=== PATIENT | female | born 1950 | race Caucasian/White ===

== ENCOUNTER 2022-01-04 09:49 | Emergency (ER) | payer MEDICARE, OTHER, SELFPAY ==
[2022-01-04 10:03] VITALS: BP 144/88; PULSE 99; RESP 20; TEMP 37.7; O2SAT 98; BMI 37.8
[2022-01-04 10:35] VITALS: BP 144/88; PULSE 99; RESP 20; TEMP 37.7; O2SAT 98; BMI 37.5
--- NOTE | 2022-01-04 11:05 | HMH.EDUTC ---
[facility] [place] Clinical Impression: Otitis media Qualifiers: Otitis media type: unspecified Laterality: bilateral Qualified Code(s): H66.93 - Otitis media, unspecified, bilateral Disposition: Home, Self-Care Condition on Discharge: Good Instructions: Middle Ear Infection, DI for Sinusitis, Amoxicillin and Clavulanic Acid Additional Instructions: *Monitor Temp, Over the counter Motrin or Tylenol as directed/as needed Tylenol every 4 hours and Motrin every 6 hours (as long as your family doctor has told you that you can take it) for fever or pain. and straight to ER if unable to lower temp less than 101.0 after medication given *Warm salt water gargles may help to soothe the throat *Throat Lozenges *Warm fluids like tea with honey may help to soothe the throat *Sleep elevated *Humidifier/Vaporizer Take medication as prescribed Return if needed Follow up IMMEDIATELY for new or worsening symptoms or no Noticeable improvement over the next 48-72 hours. 911 for difficulty breathing or swallowing Prescriptions: Amoxicillin/Potassium Clav [Amox-Clav 875-125 mg Tablet] 1 tab PO BID #20 tab Transmission Status: Pending to [facility] #[id number] predniSONE [Prednisone 20mg Tab] 20 mg PO BID #10 tab Transmission Status: Pending to [facility] # Referrals: Sidney Amezquita [Primary Care Provider] - As needed Time of Disposition: 11:16 Medical Decision Making - Shalom Inquiry Pt receiving controlled substance: No Shalom was queried for this patient: No Vital Signs: 01/04/22 10:03 01/04/22 10:35 Temperature 99.9 F H 99.9 F H Temperature Source Oral Oral Pulse Rate [Radial] 99 H 99 H Respiratory Rate 20 20 Blood Pressure [Right Arm] 144/88 H 144/88 H Blood Pressure Mean [Right Arm] 106 106 Blood Pressure Source [Right Arm] Manual Cuff/ Palpation Automatic Cuff Blood Pressure Position [Right Arm] Sitting Sitting 02 Sat by Pulse Oximetry 98 98 Oxygen Delivery Method Room Air Room Air - Lab Data Lab results reviewed: Yes: I reviewed the patient's lab results. Medical Decision Narrative: Patient states that she has taken Augmentin and Prednisone in the past without complication or reactions [facility] [place] - General Stated complaint: bilateral ear ache, off balance Time Seen by Provider: 01/04/22 11:05 Mode of Arrival: Ambulatory Source of Information: Patient Limitations: No Limitations Description of Symptoms (Recalled from Triage Doc. by RN): PATIENT C/O BILATERAL EAR PAIN SINCE YESTERDAY HEENT Symptoms (Recalled from RN notes): Yes Resp Symptoms (Recalled from RN notes): No Skin Symptoms (Recalled from RN notes): No MS Symptoms (Recalled from RN notes): No Functional Status (Recalled from RN notes): WNL - History of Present Illness Provider Complaint: Patient states that she has been having pain in both ears, sinus pain and pressure, and sore scratchy throat States that when she has an ear infection it makes her off balance and she noticed she was bumping into things today so she came in - Related Data Home Medications Medication Instructions Recorded Confirmed Venlafaxine HCl [Venlafaxine HCl 150 mg PO DAILY 01/04/22 01/04/22 ER] Previous Rx's Medication Instructions Recorded Amoxicillin/Potassium Clav 1 tab PO BID #20 tab 01/04/22 [Amox-Clav 875-125 mg Tablet] predniSONE [Prednisone 20mg 20 mg PO BID #10 tab 01/04/22 Tab] Allergies Allergy/AdvReac Type Severity Reaction Status Date / Time aspirin Allergy Verified 01/31/18 13:24 - Worker's Comp Is this a Worker's Comp case?: No [facility] History - Hepatitis A Screen Attestation statement:: This patient has been screened for Hepatitis A risk factors. I have reviewed the patient's past medical history: Yes Medical History: Denies:: Cancer, Diabetes Mellitus Type 1, Diabetes Mellitus Type 2, MRSA Laterality Cases: Right: Arthroscopy Shoulder, Carpal Tunnel Release, Bilateral: Tonsi
[2022-01-04 11:18] VITALS: BP 144/88; PULSE 99; RESP 20; TEMP 37.7; O2SAT 98
== END 2022-01-04 11:23 | disposition home or self-care (01) ==
PROVIDERS: Emergency Provider Nurse Practitioner; PCP Family Medicine
DX: H66.93 Otitis media, unspecified, bilateral (principal); J02.9 Acute pharyngitis, unspecified; Z79.52 Long term (current) use of systemic steroids; Z88.6 Allergy status to analgesic agent
CPT/HCPCS: 99213; G0463

== ENCOUNTER 2022-01-06 17:28 | Emergency (ER) | payer MEDICARE, OTHER, SELFPAY ==
[2022-01-06 18:04] VITALS: BP 152/86; PULSE 88; RESP 17; TEMP 36.8; O2SAT 96; BMI 37.8
--- NOTE | 2022-01-06 18:06 | HMH.EDUTC ---
[facility] [place] Clinical Impression: Viral syndrome Pharyngitis Qualifiers: Pharyngitis/tonsillitis etiology: unspecified etiology Qualified Code(s): J02.9 - Acute pharyngitis, unspecified Otitis media Qualifiers: Otitis media type: suppurative Chronicity: acute Laterality: bilateral Recurrence: non-recurrent Spontaneous tympanic membrane rupture: without spontaneous rupture Qualified Code(s): H66.003 - Acute suppurative otitis media without spontaneous rupture of ear drum, bilateral Disposition: Home, Self-Care Condition on Discharge: Good Instructions: Middle Ear Infection Additional Instructions: Finish the medication that you are already on. Drink plenty of fluids. Take tylenol or ibuprofen for pain or fever. Take the medications as directed. Follow up with your regular doctor. GO TO THE ER FOR ANY WORSENING SYMPTOMS Take the zofran if you continue to have nausea. Prescriptions: Ondansetron [Zofran 4mg ODT] 4 mg PO Q8HP PRN #20 tab PRN Reason: Nausea Transmission Status: Received by [facility] #[id number] Referrals: Sidney Amezquita [Primary Care Provider] - Time of Disposition: 18:12 Medical Decision Making - Medical Records Medical records reviewed: No: I reviewed the patient's medical records. - Shalom Inquiry Pt receiving controlled substance: No Vital Signs: 01/06/22 18:04 01/06/22 18:15 Temperature 98.2 F 98.2 F Temperature Source Oral Pulse Rate 88 Pulse Rate [Left Radial] 88 Respiratory Rate 17 17 Blood Pressure 152/86 H Blood Pressure [Right Arm] 152/86 H Blood Pressure Mean [Right Arm] 108 02 Sat by Pulse Oximetry 96 Orders (Tests/Meds): ORDERS Category Date Time Status Full Resp Panel w/COVID ([facility]) Routine Lab 01/06/22 18:00 Received [facility] [place] - General Stated complaint: congestion, sore throat Time Seen by Provider: 01/06/22 18:06 - History of Present Illness Provider Complaint: She states that she has had bilateral ear pressure, sore throat and she has felt bad for the past 4 days. She is taking amoxicillin that was prescribed by her doctor 2 days ago for an ear infection. She states that she is feeling some better, but she came in with her grandson to be seen because he is sick and needed to be seen. - Related Data Home Medications Medication Instructions Recorded Confirmed Venlafaxine HCl [Venlafaxine HCl 150 mg PO DAILY 01/04/22 01/04/22 ER] Previous Rx's Medication Instructions Recorded Amoxicillin/Potassium Clav 1 tab PO BID #20 tab 01/04/22 [Amox-Clav 875-125 mg Tablet] predniSONE [Prednisone 20mg 20 mg PO BID #10 tab 01/04/22 Tab] Ondansetron [Zofran 4mg ODT] 4 mg PO Q8HP PRN #20 tab 01/06/22 Allergies Allergy/AdvReac Type Severity Reaction Status Date / Time aspirin Allergy Verified 01/06/22 18:07 [facility] History - Hepatitis A Screen Attestation statement:: This patient has been screened for Hepatitis A risk factors. I have reviewed the patient's past medical history: Yes Medical History: Denies:: Cancer, Diabetes Mellitus Type 1, Diabetes Mellitus Type 2, MRSA Laterality Cases: Right: Arthroscopy Shoulder, Carpal Tunnel Release, Bilateral: Tonsillectomy Amputation: No - Social History Smoking Status: Never smoker Alcohol Intake: never Occupational Status: employed ROS Obtained: Yes All systems reviewed & no additional complaints - Constitutional Constitutional: Reports as per HPI - Eyes Eyes: Denies eye discharge - ENT Ears, Nose, Mouth, and Throat: Reports as per HPI - Cardiovascular Cardiovascular: Denies chest pain - Respiratory Respiratory: Denies chest congestion, Reports cough Physical Exam - General General appearance: alert, in no apparent distress - Head Head exam: atraumatic, normocephalic, normal inspection - Eye Eye exam: Present: normal appearance, PERRL, EOMI - ENT ENT exam: Present: normal exam, normal oropharynx, m
[2022-01-06 18:11] LABS: Adenovirus,PCR Not Detected (NotDetected); Bordetella Pertussis Not Detected (NotDetected); Chlamydophila Pneumoniae, PCR Not Detected (NotDetected); Coronavirus 229E Not Detected (NotDetected); Coronavirus NL63 Not Detected (NotDetected); Coronavirus OC43 Not Detected (NotDetected); Coronovirus HKU1,PCR Not Detected (NotDetected); Human Metapneumovirus Not Detected (NotDetected); Influenza A, PCR Not Detected (NotDetected); Influenza AH1, 2009 Not Detected (NotDetected); Influenza AH1, PCR Not Detected (NotDetected); Influenza AH3,PCR Not Detected (NotDetected); Influenza B, PCR Not Detected (NotDetected); Mycoplasma Pneumoniae, PCR Not Detected (NotDetected); Parainfluenza 1, PCR Not Detected (NotDetected); Parainfluenza 2, PCR Not Detected (NotDetected); Parainfluenza 3, PCR Not Detected (NotDetected); Parainfluenza 4, PCR Not Detected (NotDetected); Respiratory Syncytial Virus Not Detected (NotDetected); Rhinovirus/Enterovirus Not Detected (NotDetected)
[2022-01-06 18:15] VITALS: BP 152/86; PULSE 88; RESP 17; TEMP 36.8
[2022-01-06 22:14] LABS: Coronavirus 19, PCR Detected (NotDetected)
== END 2022-01-06 18:16 | disposition home or self-care (01) ==
PROVIDERS: Emergency Provider Nurse Practitioner Family; PCP Family Medicine
DX: B34.9 Viral infection, unspecified (principal); H66.003 Acute suppurative otitis media without spontaneous rupture of ear drum, bilateral
CPT/HCPCS: 87581; 87632; 87798; 99212; C9803; G0463; U0003; U0005

== ENCOUNTER 2023-01-30 15:00 | Outpatient (RCR) | payer MEDICARE, OTHER, SELFPAY | END 2023-01-30 15:05 | disposition home or self-care (01) | LOC: PT 15:00 | PROVIDERS: PCP Family Medicine; Visit Provider Orthopaedic Surgery Adult Reconstructive Orthopaedic Surgery | DX: M25.561 Pain in right knee (principal); Z96.651 Presence of right artificial knee joint | CPT/HCPCS: 97110; 97163; 97530 ==

== ENCOUNTER 2023-07-06 15:00 | Outpatient (RCR) | payer MEDICARE, OTHER, BC, SELFPAY | END 2023-07-06 16:10 | disposition home or self-care (01) | LOC: PT 15:00 | PROVIDERS: PCP Family Medicine; Visit Provider Orthopaedic Surgery Adult Reconstructive Orthopaedic Surgery | DX: M25.562 Pain in left knee (principal); Z96.652 Presence of left artificial knee joint | CPT/HCPCS: 97016; 97110; 97140; 97163; 97164; 97530 ==

== ENCOUNTER 2023-07-09 14:00 | Outpatient (RCR) | payer MEDICARE, OTHER, BC, SELFPAY | END 2023-07-09 15:00 | disposition home or self-care (01) | LOC: PT 14:00 | PROVIDERS: PCP Family Medicine; Visit Provider Physician Assistant | DX: M72.2 Plantar fascial fibromatosis (principal); M79.671 Pain in right foot; M79.672 Pain in left foot | CPT/HCPCS: 97110; 97163; 97530 ==